=== PATIENT | female | born 2000 | race African-American/Black ===

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

== ENCOUNTER 2018-03-28 22:25 | Emergency (ER) | payer SELFPAY ==
[~2018-03-28] VITALS: Ht 182.9 cm; Wt 61.2 kg
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
--- OUTSIDE RECORDS SUMMARY | 2018-03-28 22:31 | XMS REPORT ---
Author Author JONATAN ANGLIN [facility] [employer] [place] Address [address] [place] [address] Care Team Providers Care Mill Operator Helper Name Role Phone JONATAN ANGLIN Unavailable PROBLEMS Type Condition ICD9-CM Code CBO72-GU Code Onset Dates Condition Status SNOMED Code Problem Conduct disorder, adolescent onset type F91.2 Active 73227401 ALLERGIES No Information SOCIAL HISTORY Never Assessed PLAN OF CARE Activity Details Follow Up 3 Months Reason: VITAL SIGNS MEDICATIONS No Known Medications RESULTS Name Result Date Reference Range TEST, URINE (IN HOUSE) RESULTS negative Lot # [id number] Control + Exp date 11/11/2017 PROCEDURES Procedure Date Ordered Result Body Site DEPO PROVERA (150 MG/ML) January 13, 2017 THER/PROPH/DIAG INJ, SC/IM January 13, 2017 URINE TEST January 13, 2017 IMMUNIZATIONS Vaccine Route Administration Date Status DEPO PROVERA (150 MG/ML) IM Intramuscular January 13, 2017 Administered MEDICAL (GENERAL) HISTORY Type Description Date Surgical History dental surgery 2007
--- OUTSIDE RECORDS SUMMARY | 2018-03-28 22:31 | XMS REPORT ---
Author Author JONATAN ANGLIN [facility] [employer] [place] Address [address] [place] [address] Care Team Providers Care Pompom Maker Name Role Phone JONATAN ANGLIN Unavailable PROBLEMS Type Condition ICD9-CM Code NAS17-GW Code Onset Dates Condition Status SNOMED Code Problem Conduct disorder, adolescent onset type F91.2 Active 94780202 ALLERGIES No Information SOCIAL HISTORY Never Assessed PLAN OF CARE Activity Details Follow Up 3 Months Reason: VITAL SIGNS MEDICATIONS No Known Medications RESULTS Name Result Date Reference Range TEST, URINE (IN HOUSE) RESULTS negative Lot # [id number] Control + Exp date 11/11/2017 PROCEDURES Procedure Date Ordered Result Body Site URINE TEST Oct 28, 2016 DEPO PROVERA (150 MG/ML) Oct 28, 2016 THER/PROPH/DIAG INJ, SC/IM Oct 28, 2016 IMMUNIZATIONS Vaccine Route Administration Date Status DEPO PROVERA (150 MG/ML) IM Intramuscular Oct 28, 2016 Administered MEDICAL (GENERAL) HISTORY Type Description Date Surgical History dental surgery 2007
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
== END 2018-03-28 23:58 | disposition home or self-care (01) ==
LOC: EDUNIT# 22:25 → ER 22:26
DX: S03.2XXA Dislocation of tooth, initial encounter (principal); F17.200 Nicotine dependence, unspecified, uncomplicated; R40.2412 Glasgow coma scale score 13-15, at arrival to emergency department; Y04.0XXA Assault by unarmed brawl or fight, initial encounter
CPT/HCPCS: 70450; 70486; 72125; 84703

== ENCOUNTER 2019-10-15 13:27 | Emergency (ER) | payer SELFPAY ==
[~2019-10-15] VITALS: Ht 185.5 cm; Wt 57.6 kg
--- NOTE | 2019-10-15 15:42 | ED Cough/URI ---
General Chief Complaint: Cough/Cold/Flu Symptoms Stated Complaint: THROAT PAIN/FEVER Nursing Triage Note: CC/O sore throat starting yesterday. This am woke with light-headedness and hot/cold chills. No N/V/D. Does not know if fever. Sepsis Screen: No Definite Risk Source: patient Exam Limitations: no limitations History of Present Illness Date Seen by Provider: Oct 15, 2019 Time Seen by Provider: 15:42 Initial Comments 19-year-old female patient presents with complaints of sore throat, rhinorrhea, nasal congestion, sneezing, and generalized body aches beginning yesterday. Patient reports waking up today feeling slightly lightheaded and hot/cold. Denies known fever. Denies using any eepa-oyd-xztbloa medications. Denies modifying factors. Timing/Duration: yesterday, getting worse Severity/Quality: productive cough (clear productive cough) Prior Episodes/Possible Cause: no prior episodes Modifying Factors: Worse With Coughing Allergies and Home Medications Allergies Coded Allergies: No Known Drug Allergies (Unverified , 11/26/12) Home Medications Cephalexin 500 Mg Tablet, 500 MG PO TID Prescribed by: VENITA SANTO on 04/02/16 2248 Oseltamivir Phosphate 75 Mg Cap, 75 MG PO BID Prescribed by: ASHLEY COVARRUBIAS on 10/15/19 1555 Patient Home Medication List Home Medication List Reviewed: Yes Review of Systems Review of Systems Constitutional: see HPI, chills; No diaphoresis (does report feeling hot intermittently) EENTM: see HPI, ear pain, nose congestion, throat pain, other (rhinorrhea); No ear discharge, No hearing loss, No hoarseness Respiratory: cough; No phlegm, No short of breath, No stridor, No wheezing Cardiovascular: no symptoms reported Gastrointestinal: No abdominal pain, No constipation, No diarrhea, No nausea, No vomiting Genitourinary: no symptoms reported Musculoskeletal: see HPI Skin: no symptoms reported Psychiatric/Neurological: See HPI; Denies Numbness, Denies Paresthesia, Denies Tingling, Denies Weakness; Other (slight headache and lightheadedness) Hematologic/Lymphatic: No Symptoms Reported Immunological/Allergic: no symptoms reported All Other Systems Reviewed Negative Unless Noted: Yes (Negative excepted noted.) Past Efqpgts-Coyfoi-Ptwckh Hx Past Med/Social Hx: Reviewed Nursing Past Med/Soc Hx Patient Social History Alcohol Use: Denies Use Recreational Drug Use: No Smoking Status: Current Everyday Smoker Type Used: Cigarettes 2nd Hand Smoke Exposure: No Recent Foreign Travel: No Contact w/Someone Who Travel: No Recent Infectious Disease Expo: No Physical Abuse: No Sexual Abuse: No Mistreated: No Fear: No Immunizations Up To Date Tetanus Booster (TDap): Unknown Past Medical History Surgeries: Yes (facial) Respiratory: No Cardiac: No Neurological: No Reproductive Disorders: No Sexually Transmitted Disease: No HIV/AIDS: No Gastrointestinal: No Musculoskeletal: No Endocrine: No Psychosocial: No Integumentary: No Blood Disorders: No Adverse Reaction/Blood Tranf: No Family Medical History Reviewed Nursing Family Hx No Pertinent Family Hx Physical Exam Vital Signs - First Documented 10/15/19 13:59 Temp 37.4 Pulse 104 Resp 20 B/P (MAP) 103/71 (82) Pulse Ox 100 Capillary Refill : Less Than 3 Seconds Height: 6'0" Weight: 135lbs. oz. [id number]; 16.00 BMI Method:Stated General Appearance: WD/WN, no apparent distress HEENT: PERRL/EOMI, pharyngeal erythema, other (positive nasal congestion, rhinorrhea, and air fluid levels to the bilateral tympanic membranes. No erythema, perforation, retractions, or bulging to the TMs.) Neck: non-tender, full range of motion, supple, lymphadenopathy (R), lymphadenopathy (L) Respiratory: lungs clear, normal breath sounds, no respiratory distress, no accessory muscle use Cardiovascular: regular rate, rhythm, no edema, no murmur Gastrointestinal: normal bowel sounds, non tender, soft, no organomegaly Extremities: no pedal edema, normal capillary refill Neurologic/Psychiatric: alert, normal mood/affect, oriented x 3 Skin: normal color, warm/dry Progress/Results/Core Measures Suspected Sepsis Recent Fever Within 48 Hours: No Infection Criteria Present: None New/Unexplained Altered Menta: No Sepsis Screen: No Definite Risk SIRS Temperature: Pulse: 104 Respiratory Rate: 20 Blood Pressure 103 /71 Mean: 82 Results/Orders Lab Results Laboratory Tests Test 10/15/19 14:08 Range/Units Group A Streptococcus Screen NEGATIVE NEGATIVE Micro Results Microbiology 10/15/19 Influenza Types A,B Antigen ([facility]) - Final, Complete My Orders Orders - ASHLEY COVARRUBIAS Rapid Strep A Screen (10/15/19 14:18) Influenza A And B Antigens (10/15/19 14:18) Vital Signs/I&O 10/15/19 10/15/19 13:59 16:18 Temp 37.4 Pulse 104 73 Resp 20 16 B/P (MAP) 103/71 (82) 116/63 Pulse Ox 100 99 Capillary Refill : Less Than 3 Seconds Blood Pressure Mean: 82 Departure Communication (Admissions) Patient seen and evaluated. Lab findings discussed with the patient. Patient does have classic influenza symptoms in light of a negative influenza test. We'll plan for discharge with Tamiflu. Patient to follow-up with [facility] if no improvement in symptoms. Impression Primary Impression: Influenza-like symptoms Disposition: HOME, SELF-CARE Condition: Improved Departure-Patient Inst. Decision time for Depature: 15:54 Referrals: NO,LOCAL PHYSICIAN (PCP/Family) Primary Care Physician Patient Instructions: Flu, Adult (DC) Add. Discharge Instructions: All discharge instructions reviewed with patient and/or family. Voiced understanding. Medications as instructed. Zera-gum-bgvsqbb Tylenol as directed for pain or fever. Ibuprofen 600 mg by mouth every 6-8 hours as needed for pain or fever. Push fluids, alternating water and Powerade/Gatorade. Rest. Mrew-bgo-gokjcgf cough suppressants, decongestants, and antihistamines as instructed for symptomatic relief. Follow-up with [facility] for recheck as an outpatient if no improvement in symptoms. Return to the emergency department for worsened symptoms or any other concerns. Scripts Oseltamivir Phosphate (Tamiflu) 75 Mg Cap 75 MG PO BID, #10 CAP 0 Refills Prov: ASHLEY COVARRUBIAS 10/15/19 Work/School Note: Work Release Form Date Seen in the Emergency Department: Oct 15, 2019 Return to Work: Oct 17, 2019 Restrictions: Return-No Fever (24hrs), Return-No Vomiting(24hrs) ASHLEY COVARRUBIAS Oct 15, 2019 15:42
[2019-10-15] MEDS ORDERED: OSLT75C PO (15:55)
[2019-10-15 16:18] VITALS: BP 116/63
== END 2019-10-15 16:18 | disposition home or self-care (01) ==
LOC: EDUNIT# 13:27 → ER 13:28
DX: R09.89 Other specified symptoms and signs involving the circulatory and respiratory systems (principal); F17.210 Nicotine dependence, cigarettes, uncomplicated
CPT/HCPCS: 87430; 87804